=== PATIENT | female | born 1995 | race Caucasian/White ===

== ENCOUNTER 2017-11-11 10:40 | Emergency (ER) | payer OTHER, MEDICAID ==
[~2017-11-11] VITALS: Ht 154.9 cm; Wt 95.3 kg
[~2017-11-11 10:40] MED LIST: ABILIFY20 MG; BACTRIM DS TAB1 EACH PO; NOHOMEMEDICATIONS; VYVANSE50 MG; ZOLOFT100 MG
[2017-11-11 11:11] LABS: URINE BILIRUBIN NEGATIVE (Negative); URINE BLOOD NEGATIVE (Negative); URINE CLARITY CLEAR; URINE COLOR YELLOW; URINE GLUCOSE-RANDOM NEGATIVE (Negative); URINE KETONES NEGATIVE (Negative); URINE LEUKOCYTES TRACE (Negative); URINE NITRITE NEGATIVE (Negative); URINE PROTEIN NEGATIVE (Negative); URINE UROBILINOGEN 0.2 E.U./dl (0.2-1.0)
[2017-11-11 11:16] LABS: CASTS None Seen /LPF (None Seen); CRYSTALS None Seen /LPF (None Seen); MUCUS None Seen strn/LPF (None Seen); SQUAMOUS 4-10 Moderate /LPF (0-3); URINE RBC 3-10 Few /HPF (0-2); URINE WBC 6-15 Few /HPF (0-5)
[2017-11-11 11:18] LABS: ABSOLUTE EOSINOPHILS 0.1 thou/uL (0.0-0.7); ABSOLUTE LYMPHOCYTES 1.7 thou/uL (0.8-5.3); ABSOLUTE MONOCYTES 0.7 thou/uL (0.0-1.2); ABSOLUTE NEUTROPHILS 6.4 thou/uL (1.6-8.1); BASOPHILS 0.4 %; HEMATOCRIT 37.5 % (37.0-47.0); HEMOGLOBIN 12.2 gm/dL (12.0-15.0); LYMPHOCYTES 18.6 %; MCH 26.7 pg (26.0-34.0); MCHC 32.4 g/dL (28.0-37.0); MCV 82.6 fL (80.0-100.0); MONOCYTES 7.6 %; MPV 7.8 fl. (7.2-11.1); NUCLEATED RBCS 0 /100WBC; PLATELET COUNT* 244 thou/uL (150-400); POLYS 72.4 %; RBC 4.54 mil/uL (4.20-5.00); RDW-CV 14.4 % (10.5-14.5); WBC 8.9 thou/uL (4.0-11.0)
[2017-11-11 11:28] LABS: CALCIUM 8.3 mg/dL (8.5-10.1); CREATININE 0.7 mg/dL (0.6-1.3); POTASSIUM 3.9 mmol/L (3.5-5.1)
[2017-11-11 11:32] LABS: ALBUMIN 3.3 g/dL (3.4-5.0); TOTAL BILIRUBIN 0.1 mg/dL (<0.1-1.0); TOTAL PROTEIN 7.3 g/dL (6.4-8.2)
[2017-11-11] MEDS ORDERED: KEFLEX500 M1 PO (12:38)
[2017-11-11 12:53] VITALS: BP 123/50
== END 2017-11-11 12:54 | disposition home or self-care (01) ==
LOC: M.ERS 10:40
PROVIDERS: Physician Assistant
DX: O21.0 Mild hyperemesis gravidarum (principal); O23.41 Unspecified infection of urinary tract in pregnancy, first trimester; O99.341 Other mental disorders complicating pregnancy, first trimester; Z3A.01 Less than 8 weeks gestation of pregnancy

== ENCOUNTER 2020-11-08 12:20 | Emergency (ER) | payer BC ==
[~2020-11-08] VITALS: Ht 157.5 cm; Wt 104.3 kg
[~2020-11-08 12:20] MED LIST changes: +KEFLEX500 M1 PO
[2020-11-08] MEDS ORDERED: AMOXIL 875 MG875 M1 PO (12:51)
[2020-11-08] MEDS ORDERED: LIDOCAINE VISC100 ML SWISH&SPIT (12:51)
[2020-11-08] MEDS ORDERED: APAP W/CODEINE1 TA2 PO (12:51)
[2020-11-08 13:05] VITALS: BP 141/70
== END 2020-11-08 13:06 | disposition home or self-care (01) ==
LOC: M.ERS 12:20
DX: K08.89 Other specified disorders of teeth and supporting structures (principal); Z98.890 Other specified postprocedural states